=== PATIENT | male | born 1950 | race African-American/Black ===

== ENCOUNTER 2021-03-02 12:33 | Inpatient (IN) | payer MEDICARE, BC ==
[~2021-03-02] VITALS: Ht 185.4 cm; Wt 99.8 kg
[2021-03-02] VITALS (8 sets, daily range): BP systolic 121–139; BP diastolic 56–62
[2021-03-02 14:52] LABS: BASOPHILS # (AUTO) 0.1 (0.0-0.1); BASOPHILS % 0.6 % (0.0-1.0); EOSINOPHILS # (AUTO) 0.1 (0.0-0.4); EOSINOPHILS % 0.9 % (0.0-6.0); HEMATOCRIT 33.3 % (38.2-49.6); HEMOGLOBIN 10.5 g/dL (14.0-18.0); LYMPHOCYTES # (AUTO) 0.7 (1.0-3.2); LYMPHOCYTES % 7.8 % (18.0-39.1); MEAN CORPUSCULAR HEMOGLOBIN 25.9 pg (28-32); MEAN CORPUSCULAR HGB CONC 31.5 g/dL (31-35); MONOCYTES # (AUTO) 0.7 (0.2-0.8); MONOCYTES % 8.1 % (4.4-11.3); NEUTROPHILS # (AUTO) 7.1 (2.1-6.9); NEUTROPHILS % 82.1 % (38.7-80.0); PLATELET COUNT 220 x10e3/uL (140-360); RED BLOOD COUNT 4.06 x10e6/uL (4.3-5.7)
[2021-03-02 15:12] LABS: ALBUMIN 3.3 g/dL (3.5-5.0); ALBUMIN/GLOBULIN RATIO 0.9 (0.8-2.0); CALCIUM 8.7 mg/dL (8.4-10.2); CREATININE, SERUM 2.28 mg/dL (0.72-1.25)
[2021-03-02 15:18] LABS: CREATINE KINASE MB 1.6 ng/mL (0-5.0)
[2021-03-02] MEDS ORDERED: SIMVASTATIN20 MG PO (15:48)
[2021-03-02] MEDS ORDERED: ERGOCALCIFEROL1 GM (15:48)
[2021-03-02] MEDS ORDERED: DORZOLAMIDE-TIM10 ML OP (15:48)
[2021-03-02] MEDS ORDERED: BRILINTA90 MG PO (15:48)
[2021-03-02] MEDS ORDERED: ATORVASTATIN CA20 MG PO (15:48)
[2021-03-02] MEDS ORDERED: ISOSORBIDE MONO30 MG PO (15:48)
[2021-03-02] MEDS ORDERED: HYDRALAZINE HCL25 MG PO (15:48)
[2021-03-02] MEDS ORDERED: ASPIRIN EC81 MG PO (15:48)
[2021-03-02] MEDS ORDERED: LATANOPROST 0.7.5 ML OP (15:48)
[2021-03-02] MEDS ORDERED: NIFEDIPINE ER30 M1 PO (15:48)
[2021-03-02] MEDS ORDERED: ERGOCALCIF200 MCG/1 (15:48)
[2021-03-02] MEDS ORDERED: ALLOPURINOL100 MG PO (15:48)
[2021-03-02] MEDS ORDERED: D2 PO (15:48)
[2021-03-02] MEDS ORDERED: NEURONTIN300 MG PO (15:48)
[2021-03-02] MEDS ORDERED: LACTULOSE20 GM/30 M PO (15:48)
[2021-03-02] MEDS ORDERED: COREG12.5 MG PO (15:48)
[2021-03-02] MEDS ORDERED: FUROSEMIDE40 MG PO (15:50)
[2021-03-02] MEDS ORDERED: LANTUS 3ML100 UNITS/ SQ (15:58)
[2021-03-02] MEDS ORDERED: lispro SC (16:04)
[2021-03-02] MEDS ORDERED: LANTUS 3ML100 UNITS/ SC (16:04)
[2021-03-02] MEDS ORDERED: ATROPINE OP (16:11)
[2021-03-02] MEDS ORDERED: DEXTROSE 50% SYRINGE 50 ML IV PRN (16:30)
[2021-03-02] MEDS ORDERED: POLYETHYLENE GLYCOL 3350 17 GM PACK PO PRN (16:45)
[2021-03-02] MEDS ORDERED: ONDANSETRON HCL INJ 2MG/ML 2ML 2 MG/ML VIAL IV PRN (16:45)
[2021-03-02] MEDS ORDERED: ACETAMINOPHEN 325 MG TAB PO PRN (16:45)
[2021-03-02] MEDS ORDERED: METOPROLOL TARTRATE INJ 1 MG/ML VIAL IV PRN (16:45)
[2021-03-02] MEDS ORDERED: LACTULOSE SYRUP 20 GM/30 ML UDC PO PRN (17:00)
[2021-03-02] MEDS ORDERED: ATROPINE OP SCH (17:00)
[2021-03-02] MEDS ORDERED: FUROSEMIDE INJ 10 MG/ML 4 ML VIAL IV ONE (18:00)
[2021-03-02] MEDS ORDERED: ATROPINE SULFATE OP SCH (18:00)
[2021-03-02] MEDS: CARVEDILOL 12.5 MG TAB PO SCH (18:04)
[2021-03-02] MEDS: TICAGRELOR 90 MG TABLET PO SCH (18:04)
[2021-03-02] MEDS: PIPERACILLIN/TAZOBACTAM 2.25 GM in SODIUM CHLORIDE 0.9% 50ML 50 ML IV SCH (18:05)
[2021-03-02] MEDS: DOCUSATE SODIUM 100 MG CAP PO SCH (18:05)
[2021-03-02] MEDS: INSULIN LISPRO 100 UNIT/1 ML 3ML VIAL SQ SCH ×2 (18:13→20:49)
[2021-03-02 20:31] LABS: CLARITY,URINE SL CLOUDY (CLEAR); COLOR,URINE PINK (YELLOW); KETONES,URINE NEGATIVE (NEGATIVE); LEUKOCYTE ESTERASE ,URINE NEGATIVE (NEGATIVE); NITRITE,URINE NEGATIVE (NEGATIVE); PROTEIN,URINE DIPSTICK NEGATIVE (NEGATIVE); URINE UROBILINOGEN 0.2 mg/dL (0.2 - 1)
[2021-03-02] MEDS: LATANOPROST(OPTH) 2.5 ML BTL OP SCH (20:48)
[2021-03-02] MEDS: DORZOLAMIDE/TIMOLOL (OPTH SOL) 10 ML DRPETTE OP SCH (20:48)
[2021-03-02] MEDS: ATORVASTATIN 40 MG TAB PO SCH (20:49)
[2021-03-02] MEDS: INSULIN GLARGINE 100 UNITS/ML VIAL SQ SCH (20:50)
[2021-03-02 20:51] LABS: BACTERIA,URINE RARE /HPF; RBC,URINE >50 /HPF (0-5); WBC,URINE (MAN) 0-5 /HPF (0-5)
[2021-03-02] MEDS ORDERED: ZOLPIDEM TARTRATE 5 MG TAB PO PRN (21:00)
[2021-03-02] MEDS ORDERED: TEMAZEPAM 15 MG CAP PO PRN (21:00)
[2021-03-02] MEDS ORDERED: NON-FORMULARY MEDICATION (Insulin Glargine (Lantus 3ML Pen) 15 UNITS) SC SCH (21:00)
[2021-03-03] VITALS (8 sets, daily range): BP systolic 106–132; BP diastolic 51–65
[2021-03-03] MEDS: PIPERACILLIN/TAZOBACTAM 2.25 GM in SODIUM CHLORIDE 0.9% 50ML 50 ML IV SCH ×3 (01:32→18:08)
[2021-03-03] MEDS: FUROSEMIDE INJ 10 MG/ML 4 ML VIAL IV SCH ×2 (02:23→08:39)
[2021-03-03 05:26] LABS: BASOPHILS # (AUTO) 0.1 (0.0-0.1); BASOPHILS % 0.8 % (0.0-1.0); EOSINOPHILS # (AUTO) 0.2 (0.0-0.4); HEMATOCRIT 30.2 % (38.2-49.6); HEMOGLOBIN 9.5 g/dL (14.0-18.0); LYMPHOCYTES # (AUTO) 0.9 (1.0-3.2); LYMPHOCYTES % 14.3 % (18.0-39.1); MEAN CORPUSCULAR HEMOGLOBIN 25.5 pg (28-32); MEAN CORPUSCULAR HGB CONC 31.5 g/dL (31-35); MONOCYTES # (AUTO) 0.9 (0.2-0.8); MONOCYTES % 14.6 % (4.4-11.3); NEUTROPHILS # (AUTO) 4.2 (2.1-6.9); NEUTROPHILS % 66.7 % (38.7-80.0); PLATELET COUNT 226 x10e3/uL (140-360); RED BLOOD COUNT 3.73 x10e6/uL (4.3-5.7); RED CELL DISTRIBUTION WIDTH 14.8 % (11.7-14.4)
[2021-03-03 05:57] LABS: ALBUMIN 3.1 g/dL (3.5-5.0); ALBUMIN/GLOBULIN RATIO 0.9 (0.8-2.0); ANION GAP 14.7 mmol/L (8-16); CALCIUM 8.7 mg/dL (8.4-10.2); CREATININE, SERUM 2.39 mg/dL (0.72-1.25); POTASSIUM 3.7 mmol/L (3.5-5.1)
[2021-03-03 07:02] LABS: CHOL/HDL RATIO 3.4 (3.9-4.7); PHOSPHORUS 4.4 MG/DL (2.3-4.7)
[2021-03-03 07:22] LABS: THYROID STIMULATING HORMONE 2.002 uIU/mL (0.350-4.940)
[2021-03-03] MEDS ORDERED: NON-FORMULARY MEDICATION (Insulin Glargine (Lantus 3ML Pen) 30 UNITS) SQ SCH (07:30)
[2021-03-03] MEDS ORDERED: PIPERACILLIN/TAZOBACTAM SOD 2.25 GM VIAL ONE ×2 (08:27→16:36)
[2021-03-03] MEDS ORDERED: SODIUM CHLORIDE 0.9% 50ML 50 ML ONE ×2 (08:27→16:36)
[2021-03-03] MEDS: FAMOTIDINE 20 MG TAB PO SCH ×2 (08:36→18:07)
[2021-03-03] MEDS: ASPIRIN 81 MG ENTERIC COATED PO SCH (08:39)
[2021-03-03] MEDS: DOCUSATE SODIUM 100 MG CAP PO SCH ×2 (08:40→18:08)
[2021-03-03] MEDS: TICAGRELOR 90 MG TABLET PO SCH ×2 (08:40→18:08)
[2021-03-03] MEDS: CARVEDILOL 12.5 MG TAB PO SCH ×2 (08:41→18:09)
[2021-03-03] MEDS: ALLOPURINOL 100 MG TAB PO SCH (08:41)
[2021-03-03] MEDS: INSULIN LISPRO 100 UNIT/1 ML 3ML VIAL SQ SCH ×3 (08:57→16:30)
[2021-03-03] MEDS: INSULIN GLARGINE 100 UNITS/ML VIAL SQ SCH (08:57)
[2021-03-03] MEDS: DORZOLAMIDE/TIMOLOL (OPTH SOL) 10 ML DRPETTE OP SCH ×2 (08:58→21:00)
[2021-03-03] MEDS ORDERED: ATROPINE SULFATE OP SCH (21:00)
[2021-03-03] MEDS: ATORVASTATIN 40 MG TAB PO SCH (21:00)
[2021-03-03] MEDS: LATANOPROST(OPTH) 2.5 ML BTL OP SCH (21:00)
[2021-03-03] MEDS ORDERED: POTASSIUM CHLORIDE 20 MEQ TAB CR PO STA (21:48)
[2021-03-04] VITALS (8 sets, daily range): BP systolic 111–135; BP diastolic 49–64
[2021-03-04] MEDS: INSULIN GLARGINE 100 UNITS/ML VIAL SQ SCH ×2 (00:01→07:30)
[2021-03-04] MEDS: INSULIN LISPRO 100 UNIT/1 ML 3ML VIAL SQ SCH ×3 (00:01→11:41)
[2021-03-04] MEDS ORDERED: PIPERACILLIN/TAZOBACTAM SOD 2.25 GM VIAL ONE ×2 (00:47→08:11)
[2021-03-04] MEDS ORDERED: SODIUM CHLORIDE 0.9% 50ML 50 ML ONE ×2 (00:48→08:12)
[2021-03-04] MEDS: PIPERACILLIN/TAZOBACTAM 2.25 GM in SODIUM CHLORIDE 0.9% 50ML 50 ML IV SCH ×2 (01:14→08:26)
[2021-03-04 06:15] LABS: BASOPHILS # (AUTO) 0.1 (0.0-0.1); BASOPHILS % 0.9 % (0.0-1.0); EOSINOPHILS # (AUTO) 0.3 (0.0-0.4); EOSINOPHILS % 4.9 % (0.0-6.0); HEMATOCRIT 32.6 % (38.2-49.6); HEMOGLOBIN 10.1 g/dL (14.0-18.0); LYMPHOCYTES # (AUTO) 1.2 (1.0-3.2); LYMPHOCYTES % 20.9 % (18.0-39.1); MEAN CORPUSCULAR HEMOGLOBIN 25.4 pg (28-32); MEAN CORPUSCULAR VOLUME 82.1 fL (81-99); MONOCYTES # (AUTO) 0.7 (0.2-0.8); MONOCYTES % 12.9 % (4.4-11.3); NEUTROPHILS # (AUTO) 3.4 (2.1-6.9); NEUTROPHILS % 59.9 % (38.7-80.0); PLATELET COUNT 226 x10e3/uL (140-360); RED BLOOD COUNT 3.97 x10e6/uL (4.3-5.7); RED CELL DISTRIBUTION WIDTH 14.8 % (11.7-14.4)
[2021-03-04 06:44] LABS: ALBUMIN 3.1 g/dL (3.5-5.0); ALBUMIN/GLOBULIN RATIO 0.8 (0.8-2.0); ANION GAP 15.5 mmol/L (8-16); CALCIUM 8.6 mg/dL (8.4-10.2); CREATININE, SERUM 2.38 mg/dL (0.72-1.25); POTASSIUM 3.5 mmol/L (3.5-5.1)
[2021-03-04] MEDS: ONDANSETRON HCL 4 MG ORAL DISINTEGRATING TAB PO PRN ×2 (07:55→08:14)
[2021-03-04] MEDS: FAMOTIDINE 20 MG TAB PO SCH ×2 (07:55→08:14)
[2021-03-04] MEDS: FUROSEMIDE INJ 10 MG/ML 4 ML VIAL IV SCH (08:21)
[2021-03-04] MEDS: ASPIRIN 81 MG ENTERIC COATED PO SCH (08:21)
[2021-03-04] MEDS: TICAGRELOR 90 MG TABLET PO SCH (08:21)
[2021-03-04] MEDS: ALLOPURINOL 100 MG TAB PO SCH (08:22)
[2021-03-04] MEDS: CARVEDILOL 12.5 MG TAB PO SCH (08:22)
[2021-03-04] MEDS: DORZOLAMIDE/TIMOLOL (OPTH SOL) 10 ML DRPETTE OP SCH (08:26)
[2021-03-04] MEDS: DOCUSATE SODIUM 100 MG CAP PO SCH (08:55)
== END 2021-03-04 13:39 | disposition home or self-care (01) | DRG 291 ==
LOC: ICU 12:59 → MED/SURG 21:45
PROVIDERS: ADMIT Internal Medicine; ATTEND Internal Medicine
DX: I13.0 Hypertensive heart and chronic kidney disease with heart failure and stage 1 through stage 4 chronic kidney disease, or unspecified chronic kidney disease (principal); I50.23 Acute on chronic systolic (congestive) heart failure; J96.21 Acute and chronic respiratory failure with hypoxia; N17.9 Acute kidney failure, unspecified; E11.22 Type 2 diabetes mellitus with diabetic chronic kidney disease; N18.32 Chronic kidney disease, stage 3b; Z95.5 Presence of coronary angioplasty implant and graft; E11.65 Type 2 diabetes mellitus with hyperglycemia; Z79.4 Long term (current) use of insulin; I25.10 Atherosclerotic heart disease of native coronary artery without angina pectoris; G47.33 Obstructive sleep apnea (adult) (pediatric); I25.2 Old myocardial infarction; E78.5 Hyperlipidemia, unspecified; D50.9 Iron deficiency anemia, unspecified
CPT/HCPCS: 36415; 71046; 80053; 80061; 81001; 82550; 82553; 82948; 83036; 83735; 83880; 84100; 84443; 84484; 85025; 87040; 93005; 93306; J1815; J1940; J2543; Q0162